=== PATIENT | male | born 1960 | race Hispanic/Latino ===

== ENCOUNTER 2021-10-28 21:06 | Inpatient (IN) | payer SELFPAY ==
--- NOTE | 2021-10-28 21:47 | ER ---
Nurse's Notes [facility] Name: Keyur Shepherd Age: 61 yrs Sex: Male : 1960 Arrival Date: 10/28/2021 Time: 21:09 Bed 7 Private MD: Diagnosis: Cutaneous abscess, unspecified;Cutaneous abscess of trunk-Left shoulder Presentation: 10/28 21:23 Chief complaint: Patient states: "spider bite to back of neck". Coronavirus screen: aa9 Vaccine status: Patient reports being unvaccinated. Ebola Screen: Patient denies travel to an Ebola-affected area in the 21 days before illness onset. No symptoms or risks identified at this time. Initial Sepsis Screen: Does the patient meet any 2 criteria? No. Patient's initial sepsis screen is negative. Does the patient have a suspected source of infection? Yes: Skin breakdown/wound. Risk Assessment: Do you want to hurt yourself or someone else? Patient reports no desire to harm self or others. Onset of symptoms was October 17, 2021. 21:23 Method Of Arrival: Ambulatory aa9 21:23 Acuity: CHANDA 3 aa9 Triage Assessment: 21:28 General: Appears uncomfortable, Behavior is calm, cooperative, appropriate for age. aa9 Pain: Complains of pain in left trapezius Pain currently is 7 out of 10 on a pain scale. Historical: - Allergies: 21:26 No Known Allergies; aa9 - Home Meds: 21:26 Metformin Oral [Active]; aa9 - PMHx: 21:26 Diabetes mellitus; aa9 - PSHx: 21:26 left eye sx; aa9 - Immunization history:: Flu vaccine is not up to date. - Social history:: Smoking status: Patient denies any tobacco usage or history of. Screenin:30 Abuse screen: Denies threats or abuse. Nutritional screening: No deficits noted. jb4 Tuberculosis screening: No symptoms or risk factors identified. Fall Risk None identified. Assessment: 21:30 General: Appears in no apparent distress. comfortable, Behavior is calm, cooperative, jb4 appropriate for age. Pain: Complains of pain in left scapular area Pain does not radiate. Pain currently is 7 out of 10 on a pain scale. Neuro: Level of Consciousness is awake, alert, obeys commands, Oriented to person, place, time, situation. Cardiovascular: Patient's skin is warm and dry. Respiratory: Airway is patent Respiratory effort is even, unlabored, Respiratory pattern is regular, symmetrical. Derm: Abscess located on left scapular area is baseball sized. Musculoskeletal: Circulation, motion, and sensation intact. Range of motion: intact in all extremities. 23:00 Reassessment: Patient appears in no apparent distress at this time. Patient and/or jb4 family updated on plan of care and expected duration. Pain level reassessed. Patient is alert, oriented x 3, equal unlabored respirations, skin warm/dry/pink. 10/29 00:01 Reassessment: Patient appears in no apparent distress at this time. Patient and/or jb4 family updated on plan of care and expected duration. Pain level reassessed. Patient is alert, oriented x 3, equal unlabored respirations, skin warm/dry/pink. Vital Signs: 10/28 21:29 BP 156 / 92; Pulse 94; Resp 15 S; Temp 98.6; Pulse Ox 99% on R/A; Weight 66.22 kg (R); aa9 Height 5 ft. 2 in. (157.48 cm) (R); Pain 7/10; 23:00 BP 128 / 76; Pulse 87; Resp 16; Pulse Ox 99% on R/A; jb4 10/29 00:01 BP 123 / 73; Pulse 86; Resp 16; Pulse Ox 99% ; jb4 10/28 21:29 Body Mass Index 26.70 (66.22 kg, 157.48 cm) aa9 ED Course: 10/28 21:09 Patient arrived in ED. jj6 21:09 Mekhi Curran MD is Attending Physician. kdr 21:26 Triage completed. aa9 21:29 Arm band placed on. aa9 21:30 Patient has correct armband on for positive identification. Bed in low position. Call jb4 light in reach. Side rails up X 1. Client placed on continuous cardiac and pulse oximetry monitoring. NIBP monitoring applied. 21:42 Juan M Barney, RN is Primary Nurse. jb4 21:44 April Paniagua MD is Hospitalizing Provider. kdr 21:57 Extremity Nonvascular Complete In Process Unspecified. EDMS 22:00 Initial lab(s) drawn, by me, sent to lab. Inserted saline lock: 20 gauge in right jb4 forearm, using aseptic technique. Blood collected. 22:28 Abdoulaye Kinsey is Hospitalizing Provider. kdr 10/29 01:06 No provider procedures requiring assistance completed. Patient admitted, IV remains in jb4 place. Administered Medications: 10/28 22:11 Drug: Rocephin - (cefTRIAXone) 1 grams Route: IVPB; Infused Over: 30 mins; Site: right jb4 forearm; 22:41 Follow up: Response: No adverse reaction; IV Status: Completed infusion jb4 22:47 Drug: vancoMYCIN 1 grams Route: IVPB; Infused Over: 2 hrs; Site: right forearm; jb4 10/29 00:47 Follow up: Response: No adverse reaction; IV Status: Completed infusion jb4 Outcome: 10/28 21:47 Decision to Hospitalize by Provider. kdr 10/29 01:06 Admitted to Med/surg accompanied by nurse, via wheelchair, room 224, with chart. jb4 Condition: stable Discharge instructions given to patient, family, Instructed on the need for admit, Demonstrated understanding of instructions. 01:07 Patient left the ED. jb4 Signatures: Dispatcher [employer] EDMS Mekhi Curran MD MD kdr Juan M Barney, RN RN jb4 Tash [id number] Adele Nolasco, RN RN aa9 Corrections: (The following items were deleted from the chart) 10/28 21:36 21:23 Acuity: CHANDA 5 aa9 aa9
--- NOTE | 2021-10-28 21:48 | EDPHYS ---
Physician Documentation [facility] Name: Keyur Shepherd Age: 61 yrs Sex: Male : 1960 Arrival Date: 10/28/2021 Time: 21:09 Bed 7 Private MD: ED Physician Mekhi Curran HPI: 10/28 21:38 This 61 yrs old Male presents to ER via Ambulatory with complaints of SPIDER kdr BITE, BASE OF NECK. 21:38 Patient thinks that he may have been bitten by a spider bite on week and a half ago. At kdr the time of initial onset, he had a lot of burning around his shoulders and down his left arm. Since then he has had worsening pain and swelling to the left scapular area. Denies fever, nausea, vomiting or any other related associated symptoms. Patient is nontoxic-appearing and is otherwise alert and appropriate. The family requested Dr. Urbano's attend to the situation. I have contacted Dr. Chaney he is stated he would consult on the patient once he is admitted to the hospitalist service.. Onset: The symptoms/episode began/occurred 1.5 week(s) ago. Severity of symptoms: At their worst the symptoms were mild in the emergency department the symptoms are unchanged. The patient has not experienced similar symptoms in the past. The patient has not recently seen a physician. Historical: - Allergies: 21:26 No Known Allergies; aa9 - Home Meds: 21:26 Metformin Oral [Active]; aa9 - PMHx: 21:26 Diabetes mellitus; aa9 - PSHx: 21:26 left eye sx; aa9 - Immunization history:: Flu vaccine is not up to date. - Social history:: Smoking status: Patient denies any tobacco usage or history of. ROS: 21:38 Constitutional: Negative for fever, chills, and weight loss, Eyes: Negative for injury, kdr pain, redness, and discharge, ENT: Negative for injury, pain, and discharge, Neck: Negative for injury, pain, and swelling, Cardiovascular: Negative for chest pain, palpitations, and edema, Respiratory: Negative for shortness of breath, cough, wheezing, and pleuritic chest pain, Abdomen/GI: Negative for abdominal pain, nausea, vomiting, diarrhea, and constipation, Back: Negative for injury and pain, : Negative for injury, bleeding, discharge, and swelling, MS/Extremity: Negative for injury and deformity, Neuro: Negative for headache, weakness, numbness, tingling, and seizure activity. Psych: Negative for depression, anxiety, suicide ideation, homicidal ideation, and hallucinations, Allergy/Immunology: Negative for hives, rash, and allergies, Endocrine: Negative for neck swelling, polydipsia, polyuria, polyphagia, and marked weight changes, Hematologic/Lymphatic: Negative for swollen nodes, abnormal bleeding, and unusual bruising. 21:38 Skin: Positive for abscess, swelling, of the left trapezius and left scapular area. Exam: 21:38 Constitutional: This is a well developed, well nourished patient who is awake, alert, kdr and in no acute distress. Head/Face: Normocephalic, atraumatic. Eyes: Pupils equal round and reactive to light, extra-ocular motions intact. Lids and lashes normal. Conjunctiva and sclera are non-icteric and not injected. Cornea within normal limits. Periorbital areas with no swelling, redness, or edema. Neck: Trachea midline, no thyromegaly or masses palpated, and no cervical lymphadenopathy. Supple, full range of motion without nuchal rigidity, or vertebral point tenderness. No Meningismus. Chest/axilla: Normal chest wall appearance and motion. Nontender with no deformity. No lesions are appreciated. Cardiovascular: Regular rate and rhythm with a normal S1 and S2. No gallops, murmurs, or rubs. Normal PMI, no JVD. No pulse deficits. Respiratory: Lungs have equal breath sounds bilaterally, clear to auscultation and percussion. No rales, rhonchi or wheezes noted. No increased work of breathing, no retractions or nasal flaring. Abdomen/GI: Soft, non-tender, with normal bowel sounds. No distension or tympany. No guarding or rebound. No evidence of tenderness throughout. Back: No spinal tenderness. No costovertebral tenderness. Full range of motion. MS/ Extremity: Pulses equal, no cyanosis. Neurovascular intact. Full, normal range of motion. Neuro: Awake and alert, GCS 15, oriented to person, place, time, and situation. Cranial nerves II-XII grossly intact. Motor strength 5/5 in all extremities. Sensory grossly intact. Cerebellar exam normal. Normal gait. Psych: Awake, alert, with orientation to person, place and time. Behavior, mood, and affect are within normal limits. 21:38 Skin: abscess, that is large, of the left trapezius and left scapular area, with drainage, that is purulent, with fluctuance, that is mild, with induration, with pointing, that is obvious, with surrounding cellulitis, that is moderate. Vital Signs: 21:29 BP 156 / 92; Pulse 94; Resp 15 S; Temp 98.6; Pulse Ox 99% on R/A; Weight 66.22 kg (R); aa9 Height 5 ft. 2 in. (157.48 cm) (R); Pain 7/10; 23:00 BP 128 / 76; Pulse 87; Resp 16; Pulse Ox 99% on R/A; jb4 10/29 00:01 BP 123 / 73; Pulse 86; Resp 16; Pulse Ox 99% ; jb4 10/28 21:29 Body Mass Index 26.70 (66.22 kg, 157.48 cm) aa9 MDM: 10/28 21:38 Data reviewed: vital signs, nurses notes, lab test result(s), radiologic studies. kdr Counseling: I had a detailed discussion with the patient and/or guardian regarding: the historical points, exam findings, and any diagnostic results supporting the discharge/admit diagnosis, lab results, radiology results, the need for further work-up and treatment in the hospital. 21:47 Patient medically screened. kdr 10/28 21:31 Order name: CBC with Diff; Complete Time: 23:41 kdr 10/28 21:31 Order name: Chem 7; Complete Time: 23:41 kdr 10/28 21:37 Order name: Blood Culture Adult (2) kdr 10/28 21:41 Order name: Extremity Nonvascular Complete EDMS 10/28 21:51 Order name: COVID-19 SARS RT PCR (Document "Date of Onset" if Symptomatic); Complete kdr Time: 23:41 Administered Medications: 22:11 Drug: Rocephin - (cefTRIAXone) 1 grams Route: IVPB; Infused Over: 30 mins; Site: right jb4 forearm; 22:41 Follow up: Response: No adverse reaction; IV Status: Completed infusion [facility] 22:47 Drug: vancoMYCIN 1 grams Route: IVPB; Infused Over: 2 hrs; Site: right forearm; 4 10/29 00:47 Follow up: Response: No adverse reaction; IV Status: Completed infusion jb4 Disposition Summary: 10/28/21 21:47 Hospitalization Ordered Hospitalization Status: Observation kdr Location: Telemetry/MedSurg (observation) kdr Condition: Fair kdr Problem: new kdr Symptoms: have improved kdr Bed/Room Type: Standard kdr Provider: Abdoulaye Kinsey(10/28/21 22:28) kdr Room Assignment: [facility](10/28/21 23:56) Diagnosis - Cutaneous abscess, unspecified kdr - Cutaneous abscess of trunk - Left shoulder kdr Forms: - Medication Reconciliation Form kdr - SBAR form kdr Signatures: Dispatcher [employer] EDMS Sruthi Gilmore RN RN mw Mekhi Curran MD MD kdr Juan M Barney RN RN jb4 Lula Jones PA PA sb3 Adele Nolasco RN RN aa9 Corrections: (The following items were deleted from the chart) 10/28 21:40 21:37 Extrmty Nonvasular Limited+US.RAD.BRZ ordered. EDMS EDMS 22:28 21:47 April Paniagua kdr kdr 23:56 21:47 kdr mw
[2021-10-28] MEDS ORDERED: NA CHLORIDE 0.9% 50 ML ONE (22:15)
[2021-10-28] MEDS ORDERED: VANCOMYCIN 1 GM/VIAL ONE (22:15)
[2021-10-28] MEDS ORDERED: CEFTRIAXONE 1000 MG/VIAL ONE (22:15)
[2021-10-28] MEDS ORDERED: NA CHLORIDE 0.9% 250 ML ONE (22:15)
[2021-10-28 22:29] LABS: Absolute Lymphocytes (CBC) 2.1 K/uL (0.7-4.9); Hematocrit 41.5 % (39.6-49.0); Lymphocytes % 30.3 % (15.3-44.8); MCV 88.6 fL (80-100); RBC Red Blood Cell Count 4.68 M/uL (4.33-5.43)
[2021-10-28 23:03] LABS: Potassium 3.8 mmol/L (3.5-5.1)
--- NOTE | 2021-10-28 23:25 | P.HP ---
Certification for Inpatient Patient admitted to: Observation With expected LOS: <2 Midnights Patient will require the following post-hospital care: None Practitioner: I am a practitioner with admitting privileges, knowledge of patient current condition, hospital course, and medical plan of care. Services: Services provided to patient in accordance with Admission requirements found in Title 42 Section 412.3 of the Code of Federal Regulations Patient History Date of Service: 10/28/21 Reason for admission: Cellulitus/Abscess Back History of Present Illness: Patient is a 61 y/o M with type 2 diabetes, non-insulin dependent and hyperlipidemia who presented to the ED via complaints of abscess to the left scapular region. Patient believes he was bitten there by a spider approximately 1.5 weeks ago. He reports it gradually becoming more swollen, erythematous and painful. He saw Dr. Chaney in clinic 2 days ago who prescribed Ciprofloxacin. He states that it was not improving so he came to ED. Abscess was draining purulent fluid with surrounding cellulitus. Dr. hCaney was notified and has agreed to consult. Labs and vitals WNL. Patient was started on vanc and ceftriaxone in ED. He is admitted for observation. Home medications list reviewed: Yes - Past Medical/Surgical History Diabetic: Yes -: Type 2 Diabetes, Non-Insulin Dependent -: Hyperlipidemia -: Left eye surgery Psychosocial/ Personal History: Patient is . - Family History Family History: Reviewed- Non-Contributory - Social History Smoking Status: Never smoker Alcohol use: No CD- Drugs: No Caffeine use: Yes Place of Residence: Home Review of Systems Integumentary: As per HPI Physical Examination - Physical Exam General: Alert, In no apparent distress HEENT: Atraumatic, PERRLA, EOMI, Sclerae nonicteric Neck: Supple, 2+ carotid pulse no bruit, No LAD, Without JVD or thyroid abnormality Respiratory: Clear to auscultation bilaterally, Normal air movement Cardiovascular: Regular rate/rhythm, Normal S1 S2 Gastrointestinal: Normal bowel sounds, No tenderness Musculoskeletal: No tenderness Integumentary: Tenderness/swelling (approx quarter sized abscess noted to left scapular region, draining purulent fluid, with surrounding cellulitus ), Erythema, Warmth, Other Neurological: Normal gait, Normal speech, Normal strength at 5/5 x4 extr, Normal tone, Normal affect - Studies Laboratory Data (last 24 hrs) 10/28/21 21:34: Sodium 138, Potassium 3.8, BUN 5 L, Creatinine 0.72, Glucose 99 10/28/21 21:34: WBC 7.0, Hgb 14.0, Hct 41.5, Plt Count 340 Assessment and Plan - Problems (Diagnosis) (1) Cutaneous abscess of back excluding buttocks Current Visit: Yes Status: Acute (2) Type 2 diabetes mellitus Current Visit: Yes Status: Chronic 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 Chaney planning to take patient to OR tomorrow -Continue IV vanc and rocephin -IV fluids overnight -Glucose monitoring and sliding scale as needed -Monitor and replete electrolytes per protocol -Reconcile and continue home medications -Lovenox for VTE ppx -Full code Discharge Plan: Home Plan to discharge in: 24 Hours - Advance Directives Does patient have a Living Will: No Does patient have a Durable POA for Healthcare: No - Code Status/Comfort Care Code Status Assessed: Yes (Full) Critical Care: No Time Spent Managing Pts Care (In Minutes): 50
[2021-10-29 00:58] VITALS: BMI 26.2
[2021-10-29] MEDS ORDERED: ACETAMINOPHEN 500 MG TAB PO PRN (01:30)
[2021-10-29] MEDS ORDERED: VANCOMYCIN 1 GM in NA CHLORIDE 0.9% 250 ML IVPB SCH (01:30)
[2021-10-29] MEDS ORDERED: ONDANSETRON 4 MG/2 ML VIAL IV PRN (01:30)
[2021-10-29] MEDS ORDERED: NA CHLORIDE 0.9% 1,000 ML IV SCH (01:30)
[2021-10-29] MEDS ORDERED: VANCOMYCIN 250 MG in NA CHLORIDE 0.9% 100 ML IVPB ONE (02:00)
[2021-10-29] MEDS ORDERED: KCL 20 MEQ/100 mL IVPB 20 MEQ/100 ML BAG IV SCH (06:00)
[2021-10-29 07:27] LABS: Urine Bilirubin Negative (Negative); Urine Blood Negative (Negative); Urine Clarity Clear (Clear); Urine Color Yellow (Yellow); Urine Glucose Negative (Negative); Urine Protein Negative (Negative); Urine Urobilinogen 0.2 mg/dL (0.2-1.0)
[2021-10-29] MEDS: INSULIN -REGULAR HUMAN 50 UNIT/0.5 ML ML SQ SCH ×2 (07:30→11:30)
[2021-10-29] MEDS ORDERED: CEFTRIAXONE 1,000 MG in NA CHLORIDE 0.9% 50 ML IVPB SCH (09:00)
[2021-10-29] MEDS ORDERED: ENOXAPARIN 40 MG/0.4 ML SQ SCH (09:00)
[2021-10-29] MEDS ORDERED: FENTANYL CITR 100 MCG/2 ML ONE (09:36)
[2021-10-29] MEDS ORDERED: propofoL 200 MG/20 ML VIAL IV ONE (09:37)
[2021-10-29] MEDS ORDERED: MIDAZOLAM HCL 2 MG/2 ML INJ ONE (09:38)
[2021-10-29] MEDS ORDERED: dexAMETHasone 4 MG/ML VIAL ONE (09:38)
[2021-10-29] MEDS ORDERED: ONDANSETRON 4 MG/2 ML VIAL ONE (09:38)
[2021-10-29] MEDS ORDERED: LIDOCAINE 2% MPF 5 ML VIAL ONE (09:38)
[2021-10-29] MEDS ORDERED: KETOROLAC 30 MG/ML INJ ONE (09:38)
[2021-10-29] MEDS ORDERED: Phenylephrine HCl 10 MG/ML 1 ML VIAL ONE (10:18)
[2021-10-29] MEDS ORDERED: NS 0.9% VIAL 10 ML ONE (10:18)
--- NOTE | 2021-10-29 10:32 | P.BOP ---
Preoperative diagnosis: infected ulcerated back subQ mass with abscess Postoperative diagnosis: same Primary procedure: Excisional biopsy of infected ulcerated back subQ mass [id number] Estimated blood loss: <10cc Specimen: mass, culture Findings: mass wirh deep abscess Anesthesia: MAC Complications: None Drain(s): Other (wet to dry NS) Transferred to: Recovery Room Condition: Good
[2021-10-29] MEDS ORDERED: NA CHLORIDE 0.9% 1,000 ML ONE (10:47)
--- NOTE | 2021-10-29 10:53 | P.DS ---
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 Patient believes he was bitten there by a spider approximately 1.5 weeks ago. He reports it gradually becoming more swollen, erythematous and painful. He saw Dr. Chaney in clinic 2 days ago who prescribed Ciprofloxacin. He states that it was not improving so he came to ED. Abscess was draining purulent fluid with surrounding cellulitus. Labs and vitals WNL. Dr. Chaney was notified, patient was started on vanc and ceftriaxone in ED and admitted for further management. Hospital Course: Patient admitted to the medical floor, seen by Dr. Chaney who performed excisi onal biopsy. Patient deemed stable for discharge per Dr. Chaney. He is discharged with oral Bactrim and wet-to-dry dressing of the wound recommended. He will follow with Dr. Chaney in the office within 1 week. Vital Signs/Physical Exam: Temp Pulse Resp BP Pulse Ox 97 F 77 18 94/63 98 10/29/21 10:47 10/29/21 10:47 10/29/21 10:47 10/29/21 10:47 10/29/21 08:00 General: Alert, In no apparent distress, Oriented x3 HEENT: Mucous membr. moist/pink Neck: JVD not distended Respiratory: Clear to auscultation bilaterally, Normal air movement Cardiovascular: No edema, Regular rate/rhythm, Normal S1 S2 Gastrointestinal: Soft and benign, Non-distended, No tenderness Musculoskeletal: No swelling Neurological: Normal speech, Normal strength at 5/5 x4 extr Laboratory Data at Discharge: WBC 7.0 K/uL (4.3-10.9) 10/28/21 21:34 Hgb 14.0 g/dL (13.6-17.9) 10/28/21 21:34 Hct 41.5 % (39.6-49.0) 10/28/21 21:34 Plt Count 340 K/uL (152-406) 10/28/21 21:34 Sodium 138 mmol/L (136-145) 10/28/21 21:34 Potassium 3.8 mmol/L (3.5-5.1) 10/28/21 21:34 BUN 5 mg/dL (7-18) L 10/28/21 21:34 Creatinine 0.72 mg/dL (0.55-1.3) 10/28/21 21:34 Glucose 99 mg/dL (74-106) 10/28/21 21:34 Home Medications: Codeine/APAP [Tylenol W/Codeine #3 tab] 1 tab PO Q6HP PRN #30 tab 10/29/21 Metformin HCl 1,000 mg PO BID 10/29/21 NaCl 0.9% Irr Bottle [Ns Irrigation Bottle] 1 tiffany IRR BID #1 btl 10/29/21 Pravastatin [Pravachol] 40 mg PO DAILY 10/29/21 Smz./Tmp. [Bactrim Ds 800 MG/160 MG] 1 tab PO BID #20 tab 10/29/21 glyBURIDE [Glyburide] 2.5 mg PO BID 10/29/21 New Medications: Codeine/APAP [Tylenol W/Codeine #3 tab] 1 tab PO Q6HP PRN #30 tab PRN Reason: Pain Smz./Tmp. [Bactrim Ds 800 MG/160 MG] 1 tab PO BID #20 tab NaCl 0.9% Irr Bottle [Ns Irrigation Bottle] 1 tiffany IRR BID #1 btl Physician Discharge Instructions: Wet to dry NS to back wound daily. May take showers with dressing off Diet: ADA Activity: Ad lan Followup: Tahir Chaney MD [ACTIVE - CAN ADMIT] - 1 Week JESICA MOONEY [Primary Care Provider] - Time spent managing pt's care (in minutes): 33
[2021-10-29 11:01] VITALS: O2SAT 99
[2021-10-29 12:05] VITALS: BP 120/73; TEMP 97
--- NOTE | 2021-10-29 13:02 | CON ---
Date of Consultation: 10/29/2021 Reason For Service: Cellulitis, abscess, and large infected mass left upper back with diabetes. History Of Present Illness: This is the case of a 61-year-old patient, came to the ER complaining of left upper back large mass, ulceration with an abscess, some purulent discharge. The patient was se en by me in the end of last week and we recommended the patient to be admitted and go to the ER immed iately for admission due to a large area in that region. He was sent by the primary doctor directly to my office, but since the patient was coming from out of town [place], he could not stay. L ast night, shows up in the ER that things are getting worse, still having purulent discharge and I wa s called to see if I take care of this patient, even though I am not personal carer. Since I attended the p atient in my office and I was glad to help the patient. He has been antibiotics with no improvement. He was explained that before since the area is too large to just be taken care of by antibiotics. Past Medical History: Diabetes, hyperlipidemia. Past Surgical History: Includes of left eye. Family History: Noncontributory. Social History: He does not smoke. He does not drink alcohol. Allergies: NONE. Review of Systems: Previously some fever with no nausea. No vomiting. No dysuria. No hematuria. No melena. The coty ent advised the importance of colonoscopies. Physical Examination: General: The patient is awake, alert. HEENT: Pupils are equal and reactive. Anicteric. Neck: Supple. Chest: Clear. Heart: S1, S2. Abdomen: Soft and depressible. No guarding or rebound. Extremities: Good capillary refill. Rectal: Deferred. Integumentary: Shows a large at least 10 x 13 cm area of cellulitis with abscess, purulent discharge , large mass found in that region, probably an infected sebaceous cyst which has been in the process for several weeks. There are ulcerations all over the skin with fluctuance and crepitus present. Laboratory Data: Blood work shows WBC count of 7, hemoglobin of 14, glucose 99. Assessment: A 61-year-old patient with a large infected mass with abscess, cellulitis and ulceration s on the left upper back. The patient will need excision biopsy of that infected mass with drainage and debridement of a large abscess with benefits, alternatives, and risks including, but not limited to infection, bleeding, damage to adjacent structures, anesthesia complication, recurrence, IN and ev en . He also understands this may not relieve any symptoms. He might need more than one surgic al intervention. He will require wound care. His understands. She was explained and she feels comfortable with it. ANTHONY/GABBY Voice ID: [id number] Report ID: [id number]
--- NOTE | 2021-10-29 13:17 | OP ---
Date of Procedure: 10/29/2021 Surgeon: Tahir Chaney MD Preoperative Diagnosis: Infected ulcerated back subcutaneous mass with abscess, cellulitis, and diab etes. Postoperative Diagnosis: Infected ulcerated back subcutaneous mass with abscess, cellulitis, and cheng betes. Procedure: Excisional biopsy of large infected ulcerated back subcutaneous mass, 7 x 7 x 1 cm. Estimated Blood Loss: Less than 10 mL. Specimen: Mass and culture. Finding: The patient has a large mass, but ulcerations, skin necrosis, and also has an abscess deep to that mass. All that was cleaned. Anesthesia: MAC plus local anesthetic. Packing: Wet-to-dry. Indication: This is the case of a 61-year-old patient, who comes to us with a large ulcerated mass. It has been like that for 2 weeks. He has been on antibiotics by mouth, has not improved. He was a dmitted last night. The benefits, alternatives, and risks of excisional biopsy of this infected larg e subcutaneous mass with drainage of an abscess fully explained, which include, but not limited to in fection, bleeding, damage to adjacent structures, anesthesia complication, recurrence, DE, and even d eath. He also understands this may not relieve any symptoms. He might need more than one surgical i ntervention. He understands he will require wound care with normal saline. The family and the feels comfortable with it. He understands the importance also of diabetes control. The area of kimberley ochoa was signed by me and the patient in the holding room. Procedure In Detail: The patient was brought to the operating room, placed in supine position. Anes thesia was done without complication. The patient was placed in lateral decubitus position with prop er protection. Back area was prepped and draped in the usual sterile fashion. Local anesthesia was applied followed by wide excision of this infected mass. We have to go wider in the area, even thoug h the cellulitis extending more than 10 to 13 cm. The mass itself is about 7 x 7 cm and deep to that mass, there is an abscess that goes all the way down to fascia of the muscle, but does not penetrate the muscle. The mass was completely excised and hemostasis was obtained. Area was cultured. Irrig ation was done and local anesthesia was applied. The patient tolerated the procedure well. The area was packed with wet-to-dry dressing. The patient was sent to recovery in stable condition. When th e patient gets discharged home, he is going to be on p.o. antibiotics and welcome to follow my office in a week from now, even though he is out of town. MIKE Voice ID: [id number] Report ID: [id number]
--- NOTE | 2021-10-29 13:29 | RAD REPORT ---
EXAM DESCRIPTION: US - Extremity Nonvascular Complete - 10/28/2021 11:11 pm CLINICAL HISTORY: Pain. Spider bite that has enlarged. Large lump to left scapula. COMPARISON: None. TECHNIQUE: Survey ultrasound imaging of the left posterior chest wall was performed including color Doppler evaluation with associate sales representative images obtained. FINDINGS: In the region of concern overlying the left scapula, there is prominent subcutaneous edema with mild hyperemia on color Doppler imaging. No fluid collection is identified. IMPRESSION: Soft tissue inflammatory changes with no fluid collection identified. Electronically signed by: Libby Sheehan MD 10/28/2021 10:40 PM CDT Due to temporary technical issues with the PACS/Fluency reporting system, reports are being signed by the in house radiologists without review as a courtesy to insure prompt reporting. The interpreting radiologist is fully responsible for the content of the report.
[2021-10-29] MEDS ORDERED: VANCOMYCIN 1.25 GM in NA CHLORIDE 0.9% 250 ML IVPB SCH (14:00)
== END 2021-10-29 13:33 | disposition home or self-care (01) | DRG 603 ==
LOC: ER 21:06 → ERHOLD 23:14 → 2ND 10-29 00:15 → OBSVTOIN 10-29 10:24
PROVIDERS: ADMIT Internal Medicine; ATTEND Internal Medicine
PROC: 0JB70ZX Excision of Back Subcutaneous Tissue and Fascia, Open Approach, Diagnostic (ICD-10-PCS; principal; 2021-10-29 10:45)
DX: L02.212 Cutaneous abscess of back [any part, except buttock and flank] (principal); L03.312 Cellulitis of back [any part except buttock and flank]; E11.9 Type 2 diabetes mellitus without complications; E78.5 Hyperlipidemia, unspecified; L72.3 Sebaceous cyst; Z20.822 Contact with and (suspected) exposure to COVID-19
CPT/HCPCS: 36415; 76881; 80048; 81003; 82947; 85025; 87040; 87070; 87075; 87077; 87186; 87205; 88304; 88305; 94010; 96365; 96367; 99285; G0378; J1100; J2250; J2370; J2405; J2704; J3010; J3370; J3480; J7030; J7050; U0003